=== PATIENT | male | born 1995 ===

== ENCOUNTER 2021-03-20 14:57 | Emergency (ER) | payer MEDICAID, SELFPAY ==
[2021-03-20 15:07] VITALS: TEMP 36.8
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
[2021-03-21 10:06] VITALS: BP 103/49; PULSE 65; RESP 18; TEMP 36.8
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
== END 2021-03-21 10:06 | disposition home or self-care (01) ==
PROVIDERS: Emergency Provider Student in an Organized Health Care Education/Training Program
DX: S01.01XA Laceration without foreign body of scalp, initial encounter (principal); T74.11XA Adult physical abuse, confirmed, initial encounter; Q87.2 Congenital malformation syndromes predominantly involving limbs
CPT/HCPCS: 12001; 99283; 99282